=== PATIENT | female | born 1990 | race Caucasian/White ===

== ENCOUNTER → 2016-05-02 | Outpatient (CLI) | payer BC ==
--- NOTE | ~2016-05-02 | MR165 ---
[facility] A Service of [facility] RADIOLOGY TEXT RESULTS PATIENT: DEREK FAIRCHILD LOCATION: [facility] : [birth year] UNIT #: [id number] AGE: [address]: HARRY CARIAS APRN SEX: F ORDER DR: [id number] [address] [address] [id number] O MR#: [id number] Acc #: [id number] NAME: DEREK FAIRCHILD : 1990 SEX: F STUDY DATE/TIME: 05/02/2016 8:55 UNIT: [facility] ROOM: STUDY DESCRIPTION: MR Shoulder Wo Contrast Rt Attending Physician: Harry Carias Aprn Referring Physician: Harry Carias Aprn Ordering Physician: Harry Carias Aprn Primary Care Physician: Harry Carias Aprn MRI CENTER REPORT This report is preliminary unless electronic signature is present. EXAM MRI of the right shoulder HISTORY 22-year-old female right shoulder pain and right upper extremity weakness for approximately 4 weeks. 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 COMPARISON Right shoulder films 04/22/2016 FINDINGS Multiplanar multiecho imaging was performed of the right shoulder utilizing a high field magnet and dedicated protocol. Bone structure alignment appears normal. No focal marrow edema. AC joint unremarkable. There is mild supraspinatus and infraspinatus tendinopathy without tear. Trace amount of bursal inflammation. Teres minor and subscapularis tendons appear intact. No muscle atrophy or edema. Superior labrum, biceps anchor and long tendon biceps appears intact. Anterior-posterior labrum unremarkable. Deltoid and extraarticular soft tissues appear normal. IMPRESSION Mild pre insertional supraspinatus and infraspinatus tendinopathy. No evidence of a tear. Trace amount of subacromial-subdeltoid bursal inflammation. Dictated by... [facility] A Service of [facility] RADIOLOGY TEXT RESULTS PATIENT: DEREK FAIRCHILD LOCATION: [facility] : [birth year] UNIT #: [id number] AGE: [address]: HARRY CARIAS APRN SEX: F ORDER DR: Arabella White M.D. THIS IS AN ELECTRONICALLY VERIFIED REPORT Arabella White M.D. at 05/04/2016 12:27 PM CAMILA/owen TD: 05/03/2016 11:01 JOB #: [id number] MRI CENTER REPORT Page 1 of 1
== END | disposition home or self-care (01) ==
LOC: SMRI 08:36
DX: M25.511 Pain in right shoulder (principal); M75.81 Other shoulder lesions, right shoulder; M75.51 Bursitis of right shoulder
CPT/HCPCS: 73221